=== PATIENT | female | born 1990 | race Caucasian/White ===

== ENCOUNTER 2019-07-13 10:46 | Emergency (ER) | payer MEDICAID ==
[2019-07-13] MEDS ORDERED: Phenazopyridine 95 MG Tab PO ONE (11:19)
[2019-07-13] MEDS ORDERED: Ondansetron 4 MG Tab.DIS PO ONE (11:20)
--- NOTE | 2019-07-13 11:25 | EDM.PDOC ---
ED HPI GENERAL MEDICAL PROBLEM - General Chief Complaint: Abdominal Pain Stated Complaint: ABDOMINAL PAIN/BURN WHILE URINATING Time Seen by Provider: 07/13/19 11:09 Source of Information: Reports: Patient, RN Notes Reviewed History Limitations: Reports: No Limitations - History of Present Illness INITIAL COMMENTS - FREE TEXT/NARRATIVE: Patient is a 29-year-old female who presents to the ED for the evaluation lower abdominal pain, dysuria. The patient notes that for the past 3 days, she developed symptoms. She states that she also got her period yesterday, and states that it has been exquisitely painful. She states that she is having lower abdomen pain, that also radiates into her low back. She notes dysuria, urinary frequency and urgency, chills, but not sure she has had any fever, she is afebrile at time of triage. Patient states she has not ever had a UTI. She tried to take 2 tablets of Pamprin, and 2 tablets of Tylenol for management. She states she has been increasing her fluid intake as well. Patient notes she has not had any sort of appendectomy, cholecystectomy, or hysterectomy. She states she has had a . She states that her periods are normally never this painful. She denies chance of , but she was a little bit late with her. She took 1 test at home and this was negative. She denies any vomiting or diarrhea, chest pain or shortness of breath. 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 Denies: Fever Respiratory: Denies: Shortness of Breath, Cough Cardiovascular: Denies: Chest Pain GI/Abdominal: Reports: Abdominal Pain (suprapubic/low mid abdominal), Nausea. Denies: Constipation, Diarrhea, Vomiting : Reports: Dysuria, Frequency, Pain (low mid abdomen/suprapubic), Urgency. Denies: Discharge, Hematuria Musculoskeletal: Reports: Back Pain (low bilateral back pain) ED EXAM, RENAL/ - Physical Exam Exam: See Below Exam Limited By: No Limitations General Appearance: Alert, WD/WN, No Apparent Distress Respiratory/Chest: No Respiratory Distress, Lungs Clear, Normal Breath Sounds, No Accessory Muscle Use, Chest Non-Tender Cardiovascular: Normal Peripheral Pulses, Regular Rate, Rhythm, No Murmur GI/Abdominal: Normal Bowel Sounds, Soft, No Distention, No Mass, Tender ( suprapubic tenderness) (Female) Exam: Deferred Back Exam: Normal Inspection, Full Range of Motion. No: CVA Tenderness (L), CVA Tenderness (R) Extremities: Normal Inspection, Normal Capillary Refill Neurological: Alert, Oriented, Normal Cognition, No Motor/Sensory Deficits Psychiatric: Normal Affect, Normal Mood Skin Exam: Warm, Dry, Intact, Normal Color, No Rash Course - Vital Signs Last Recorded V/S: Last Vital Signs Temp 97.6 F 07/13/19 11:08 Pulse 78 07/13/19 11:08 Resp 18 07/13/19 11:08 BP 129/71 07/13/19 11:08 Pulse Ox 100 07/13/19 11:08 - Orders/Labs/Meds Orders: Active Orders 24 hr Category Date Time Status CULTURE URINE [RM] Routine Lab 07/13/19 12:20 Ordered Labs: Laboratory Tests 07/13/19 07/13/19 Range/Units 11:12 11:24 Urine Color Yellow (Yellow) Urine Appearance Clear (Clear) Urine pH 7.0 (5.0-8.0) Ur Specific [place] 1.025 (1.005-1.030) Urine Protein Negative (Negative) Urine Glucose (UA) Negative (Negative) Urine Ketones Negative (Negative) Urine Occult Blood Negative (Negative) Urine Nitrite Negative (Negative) Urine Bilirubin Negative (Negative) Urine Urobilinogen 0.2 (0.2-1.0) Ur Leukocyte Esterase Trace H (Negative) Urine RBC Not seen (0-5) /hpf Urine WBC 5-10 H (0-5) /hpf Ur Epithelial Cells 0-5 (0-5) /hpf Urine Bacteria Rare (FEW) /hpf Urine Mucus Not seen (FEW) /hpf Urine HCG, Qual Negative (NEGATIVE) Meds: Medications Discontinued Medications Generic Name Dose Route Start Last Admin Trade Name Donna PRN Reason Stop Dose Admin Ibuprofen 600 mg 07/13/19 11:27 07/13/19 11:32 Motrin PO 07/13/19 11:28 600 mg ONETIME ONE Administration Ondansetron HCl 4 mg 07/13/19 11:20 07/13/19 11:24 Zofran Odt PO 07/13/19 11:21 4 mg ONETIME ONE Administration Phenazopyridine HCl 95 mg 07/13/19 11:19 07/13/19 11:24 Urinary Pain Relief PO 07/13/19 11:20 95 mg ONETIME ONE Administration - Re-Assessments/Exams Free Text/Narrative Re-Assessment/Exam: 07/13/19 11:25 Patient presents to the ED for evaluation of burning with urination and mid to lower abdominal pain. By physical exam and history, she clinically has a UTI. A UA will be obtained, with a hCG, and she will be given a tablet of Azo to start symptomatic relief here. 07/13/19 12:20 Patient's laboratory evaluations done, they demonstrates no nitrites, trace leukocyte esterase with 5-10 white blood cells present. Due to the patient's clinical presentation and symptoms, I do believe she has a UTI she will be treated as such, she will be given 500 mg cephalexin twice daily for the next 7 days. With other general recommendations. She will be educated on return precautions. Departure - Departure Time of Disposition: 12:21 Disposition: Home, Self-Care 01 Condition: Fair Clinical Impression: UTI (urinary tract infection) Qualifiers: Urinary tract infection type: acute cystitis Hematuria presence: without hematuria Qualified Code(s): N30.00 - Acute cystitis without hematuria - Discharge Information *PRESCRIPTION DRUG MONITORING PROGRAM REVIEWED*: No *COPY OF PRESCRIPTION DRUG MONITORING REPORT IN PATIENT EUGENIO: No Prescriptions: cephALEXin [Cephalexin] 500 mg PO BID #14 capsule Instructions: Urinary Tract Infection, Adult, [id number] Referrals: PCP,None [Primary Care Provider] - Forms: ED Department Discharge Additional Instructions: You have been evaluated in the ED for your urinary symptoms. Your urinalysis was consistent with an acute urinary tract infection. Your urine was sent for culture, and you will be notified if you should need a change in your antibiotic. You may take AZO for urinary pain relief. This is available over the counter, and can be attained at any retail store like [employer] or any pharmacy. Please be aware that this medication will make your urine turn orange. You may also try to use a heating pad to your lower abdomen to help provide pain relief. You have been given a prescription for Cephalexin, 500 mg 1 tablet 2 times a day for 7 days. This has been electronically sent to the [facility] pharmacy located on [address]. Please increase your oral fluid intake and try to stay adequately hydrated. Please return to the ED if your symptoms change or worsen. Sepsis Event Note - Evaluation Sepsis Screening Result: No Definite Risk - Focused Exam Vital Signs: Vital Signs Temp Pulse Resp BP Pulse Ox 07/13/19 11:08 97.6 F 78 18 129/71 100 Date Exam was Performed: 07/13/19 Time Exam was Performed: 12:20 - My Orders Last 24 Hours: My Active Orders 07/13/19 12:20 CULTURE URINE [RM] Routine - Assessment/Plan Last 24 Hours: My Active Orders 07/13/19 12:20 CULTURE URINE [RM] Routine
[2019-07-13] MEDS ORDERED: Ibuprofen 600 MG Tab PO ONE (11:27)
== END 2019-07-13 12:30 | disposition home or self-care (01) ==
LOC: JD.ED 10:46
DX: N30.00 Acute cystitis without hematuria (principal); Z88.1 Allergy status to other antibiotic agents
CPT/HCPCS: 81001; 81025; 87086; 99284; A9270; 99283

== ENCOUNTER 2019-07-23 21:22 | Emergency (ER) | payer MEDICAID ==
--- NOTE | 2019-07-23 23:32 | EDM.PDOC ---
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 She states she had what she thought was a normal menstrual period about 2-1/2 weeks ago. She started with some very mild bleeding this past morning and then it did become much heavier 3-4 hours ago. He states she's been soaking several pads or tampons per hour for the last several hours. There have been some clots. Not feel like she should be . No major abdominal, pelvic pain or cramping. Upper Abdomen Pain Score (Numeric/FACES): 6 - Related Data Allergies Allergy/AdvReac Type Severity Reaction Status Date / Time sulfamethoxazole AdvReac Nausea Verified 07/23/19 21:35 [From Bactrim] trimethoprim [From Bactrim] AdvReac Nausea Verified 07/23/19 21:35 Home Meds: Home Meds . 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: Musculoskeletal History: Reports: None Neurological History: Reports: None Psychiatric History: Reports: None Endocrine/Metabolic History: Reports: None Hematologic History: Reports: None Immunologic History: Reports: None Oncologic (Cancer) History: Reports: None Dermatologic History: Reports: None - Infectious Disease History Infectious Disease History: Reports: None - Past Surgical History HEENT Surgical History: Reports: Other (See Below) Other HEENT Surgeries/Procedures: Dental Extraction Female Surgical History: Reports: Section Social & Family History - Tobacco Use Smoking Status *Q: Current Every Day Smoker Years of Tobacco use: 13 Packs/Tins Daily: 0.4 - Caffeine Use Caffeine Use: Reports: None - Recreational Drug Use Recreational Drug Use: No ED ROS GENERAL - Review of Systems Review Of Systems: See Below Constitutional: Denies: Fever, Chills, Diaphoresis HEENT: Reports: No Symptoms Respiratory: Denies: Shortness of Breath Cardiovascular: Denies: Chest Pain GI/Abdominal: Denies: Abdominal Pain : Reports: Other (Vaginal bleeding) Musculoskeletal: Denies: Back Pain Skin: Reports: No Symptoms Neurological: Reports: No Symptoms ED EXAM, RENAL/ - Physical Exam Exam: See Below General Appearance: Alert, No Apparent Distress Throat/Mouth: Normal Inspection Head: Atraumatic Neck: Supple Respiratory/Chest: No Respiratory Distress, Lungs Clear, Normal Breath Sounds Cardiovascular: Regular Rate, Rhythm GI/Abdominal: Soft, Non-Tender (Female) Exam: Vaginal Bleeding (Very small amount of blood in the posterior vaginal vault at time of exam. It should be noted exam was done about 2 hours after patient arrival to ED and patient states she could tell the bleeding had slowed significantly from time of arrival). No: Adnexal Mass, Adnexal Tenderness Back Exam: No: CVA Tenderness (L), CVA Tenderness (R) Extremities: Normal Inspection, Normal Range of Motion Neurological: Alert, Oriented, No Motor/Sensory Deficits Skin Exam: Warm, Dry, Normal Color Course - Vital Signs Last Recorded V/S: Last Vital Signs Temp 97.9 F 07/23/19 21:31 Pulse 86 07/23/19 21:31 Resp 16 07/23/19 21:31 BP 124/83 07/23/19 21:31 Pulse Ox 100 07/23/19 21:31 - Orders/Labs/Meds Labs: Laboratory Tests 07/23/19 07/23/19 Range/Units 22:10 22:10 WBC 3.77 L (3.98-10.04) K/mm3 RBC 3.92 L (3.98-5.22) M/mm3 Hgb 10.5 L (11.2-15.7) gm/dl Hct 33.6 L (34.1-44.9) % MCV 85.7 (79.4-94.8) fl MCH 26.8 (25.6-32.2) pg MCHC 31.3 L (32.2-35.5) g/dl RDW Std Deviation 40.9 (36.4-46.3) fL Plt Count 196 (182-369) K/mm3 MPV 10.4 (9.4-12.3) fl Neut % (Auto) 49.3 (34.0-71.1) % Lymph % (Auto) 35.8 (19.3-51.7) % [place] % (Auto) 6.9 (4.7-12.5) % Eos % (Auto) 7.7 H (0.7-5.8) Baso % (Auto) 0.3 (0.1-1.2) % Neut # (Auto) 1.86 (1.56-6.13) K/mm3 Lymph # (Auto) 1.35 (1.18-3.74) K/mm3 [place] # (Auto) 0.26 (0.24-0.36) K/mm3 Eos # (Auto) 0.29 (0.04-0.36) K/mm3 Baso # (Auto) 0.01 (0.01-0.08) K/mm3 HCG, Qual Negative (NEGATIVE) - Re-Assessments/Exams Free Text/Narrative Re-Assessment/Exam: 07/24/19 01:08 Hemoglobin noted to be 10.5 today, was 11.6 just a couple of days ago at the clinic. Patient has been ambulatory here in the ED without difficulty. Her that time of exam the bleeding had slowed significantly, almost stopped. HCG negative. Discharge instructions as documented. Departure - Departure Time of Disposition: 23:42 Disposition: Home, Self-Care 01 Clinical Impression: Vaginal bleeding between periods - Discharge Information Instructions: Abnormal Uterine Bleeding, [id number] Referrals: Lashanda Ramírez MD [Primary Care Provider] - Forms: ED Department Discharge Additional Instructions: rest, drink plenty of water to maintain hydration. If bleeding gets real heavy again soaking a pad or more per hour for more than 2 hours return to ED. See Dr Ramírez as needed. If unable to get into see Dr Ramírez you also can try follow up with Eveline Barrera or one of our providers at the [facility]. Call [phone] as needed for appointment. Sepsis Event Note - Evaluation Sepsis Screening Result: No Definite Risk - Focused Exam Vital Signs: Vital Signs Temp Pulse Resp BP Pulse Ox 07/23/19 21:31 97.9 F 86 16 124/83 100 Date Exam was Performed: 07/24/19 Time Exam was Performed: 01:04
== END 2019-07-23 23:56 | disposition home or self-care (01) ==
LOC: JD.ED 21:22
DX: N93.9 Abnormal uterine and vaginal bleeding, unspecified (principal); F17.210 Nicotine dependence, cigarettes, uncomplicated; Z88.2 Allergy status to sulfonamides; Z88.1 Allergy status to other antibiotic agents
CPT/HCPCS: 36415; 84703; 85025; 99282; 99284

== ENCOUNTER 2019-07-24 12:35 | Emergency (ER) | payer MEDICAID | END 2019-07-24 14:07 | disposition left against medical advice (07) | LOC: JD.ED 12:35 | DX: Z53.21 Procedure and treatment not carried out due to patient leaving prior to being seen by health care provider (principal) | CPT/HCPCS: 36415; 80053; 85025 ==

== ENCOUNTER 2021-01-12 05:25 | Emergency (ER) | payer MEDICAID ==
--- NOTE | 2021-01-12 06:13 | EDM.PDOC ---
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 Patient was recently started on the new control pill to help regulate her cycles she was started on Lotrel 7 or 8 days ago she took it for 6 or 7 days and then she noticed she was having some heavy so she stopped it 2 to 3 days ago. Now she is developed pretty significant cramping and discomfort. She does not believe she is . She has not had any fevers or chills. Lower Abdomen Pain Score (Numeric/FACES): 8 - Related Data Allergies Allergy/AdvReac Type Severity Reaction Status Date / Time sulfamethoxazole AdvReac Nausea Verified 07/24/19 12:57 [From Bactrim] trimethoprim [From Bactrim] AdvReac Nausea Verified 07/24/19 12:57 Home Meds: Home Meds . 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: Musculoskeletal History: Reports: None Neurological History: Reports: None Psychiatric History: Reports: None Endocrine/Metabolic History: Reports: None Hematologic History: Reports: None Immunologic History: Reports: None Oncologic (Cancer) History: Reports: None Dermatologic History: Reports: None - Infectious Disease History Infectious Disease History: Reports: None - Past Surgical History HEENT Surgical History: Reports: Other (See Below) Other HEENT Surgeries/Procedures: Dental Extraction Female Surgical History: Reports: Section Social & Family History - Family History Family Medical History: No Pertinent Family History - Tobacco Use Tobacco Use Status *Q: Current Every Day Tobacco User Years of Tobacco use: 10 Packs/Tins Daily: 1 - Caffeine Use Caffeine Use: Reports: None - Recreational Drug Use Recreational Drug Use: No ED ROS GENERAL - Review of Systems Review Of Systems: See Below Constitutional: Reports: No Symptoms Respiratory: Reports: No Symptoms Cardiovascular: Reports: No Symptoms GI/Abdominal: Reports: No Symptoms : Reports: Irregular Menses Musculoskeletal: Reports: No Symptoms Skin: Reports: No Symptoms Neurological: Reports: No Symptoms ED EXAM, GENERAL - Physical Exam Exam: See Below Exam Limited By: No Limitations General Appearance: Alert, No Apparent Distress Head: Atraumatic, Normocephalic Neck: Normal Inspection, Supple, Non-Tender, Full Range of Motion Respiratory/Chest: No Respiratory Distress, Lungs Clear, Normal Breath Sounds Cardiovascular: Regular Rate, Rhythm, No Edema, No Murmur GI/Abdominal: Normal Bowel Sounds, Soft, Tender (She has tenderness in the suprapubic area and to a much lesser degree right lower quadrant no other significant tenderness noted). No: Guarding, Rigid, Rebound Back Exam: Normal Inspection, CVA Tenderness (R). No: CVA Tenderness (L) Neurological: Alert, Oriented, Normal Cognition Course - Vital Signs Last Recorded V/S: Last Vital Signs Temp 36.1 C 01/12/21 05:41 Pulse 73 01/12/21 05:41 Resp 18 01/12/21 05:41 BP 111/82 01/12/21 05:41 Pulse Ox 100 01/12/21 05:41 - Orders/Labs/Meds Labs: Laboratory Tests 01/12/21 01/12/21 01/12/21 Range/Units 06:15 06:15 06:35 WBC 6.83 (3.98-10.04) K/mm3 RBC 4.67 (3.98-5.22) M/mm3 Hgb 14.3 D (11.2-15.7) gm/dl Hct 42.1 (34.1-44.9) % MCV 90.1 D (79.4-94.8) fl MCH 30.6 (25.6-32.2) pg MCHC 34.0 (32.2-35.5) g/dl RDW Std Deviation 41.0 (36.4-46.3) fL Plt Count 215 (182-369) K/mm3 MPV 10.4 (9.4-12.3) fl Neut % (Auto) 73.8 H (34.0-71.1) % Lymph % (Auto) 15.8 L (19.3-51.7) % [place] % (Auto) 6.0 (4.7-12.5) % Eos % (Auto) 4.2 (0.7-5.8) Baso % (Auto) 0.1 (0.1-1.2) % Neut # (Auto) 5.03 (1.56-6.13) K/mm3 Lymph # (Auto) 1.08 L (1.18-3.74) K/mm3 [place] # (Auto) 0.41 H (0.24-0.36) K/mm3 Eos # (Auto) 0.29 (0.04-0.36) K/mm3 Baso # (Auto) 0.01 (0.01-0.08) K/mm3 Sodium (136-145) mEq/L Potassium (3.5-5.1) mEq/L Chloride (98-107) mEq/L Carbon Dioxide (21-32) mEq/L Anion Gap (5-15) BUN (7-18) mg/dL Creatinine (0.55-1.02) mg/dL Est Cr Clr Drug Dosing mL/min Estimated GFR (MDRD) (>60) mL/min BUN/Creatinine Ratio (14-18) Glucose (70-99) mg/dL Calcium (8.5-10.1) mg/dL Total Bilirubin (0.2-1.0) mg/dL AST (15-37) U/L ALT (14-59) U/L Alkaline Phosphatase (46-116) U/L Total Protein (6.4-8.2) g/dl Albumin (3.4-5.0) g/dl Globulin gm/dL Albumin/Globulin Ratio (1-2) Urine Color Yellow (Yellow) Urine Appearance Clear (Clear) Urine pH 6.5 (5.0-8.0) Ur Specific [place] 1.015 (1.005-1.030) Urine Protein Negative (Negative) Urine Glucose (UA) Negative (Negative) Urine Ketones Negative (Negative) Urine Occult Blood Negative (Negative) Urine Nitrite Negative (Negative) Urine Bilirubin Negative (Negative) Urine Urobilinogen 0.2 (0.2-1.0) Ur Leukocyte Esterase Negative (Negative) Urine HCG, Qual Negative (NEGATIVE) 01/12/21 Range/Units 06:35 WBC (3.98-10.04) K/mm3 RBC (3.98-5.22) M/mm3 Hgb (11.2-15.7) gm/dl Hct (34.1-44.9) % MCV (79.4-94.8) fl MCH (25.6-32.2) pg MCHC (32.2-35.5) g/dl RDW Std Deviation (36.4-46.3) fL Plt Count (182-369) K/mm3 MPV (9.4-12.3) fl Neut % (Auto) (34.0-71.1) % Lymph % (Auto) (19.3-51.7) % [place] % (Auto) (4.7-12.5) % Eos % (Auto) (0.7-5.8) Baso % (Auto) (0.1-1.2) % Neut # (Auto) (1.56-6.13) K/mm3 Lymph # (Auto) (1.18-3.74) K/mm3 [place] # (Auto) (0.24-0.36) K/mm3 Eos # (Auto) (0.04-0.36) K/mm3 Baso # (Auto) (0.01-0.08) K/mm3 Sodium 143 (136-145) mEq/L Potassium 3.7 (3.5-5.1) mEq/L Chloride 109 H (98-107) mEq/L Carbon Dioxide 21 (21-32) mEq/L Anion Gap 16.7 H (5-15) BUN 15 (7-18) mg/dL Creatinine 0.8 (0.55-1.02) mg/dL Est Cr Clr Drug Dosing 96.26 mL/min Estimated GFR (MDRD) > 60 (>60) mL/min BUN/Creatinine Ratio 18.8 H (14-18) Glucose 90 (70-99) mg/dL Calcium 8.8 (8.5-10.1) mg/dL Total Bilirubin 0.3 (0.2-1.0) mg/dL AST 13 L (15-37) U/L ALT 19 (14-59) U/L Alkaline Phosphatase 63 (46-116) U/L Total Protein 7.6 (6.4-8.2) g/dl Albumin 4.3 (3.4-5.0) g/dl Globulin 3.3 gm/dL Albumin/Globulin Ratio 1.3 (1-2) Urine Color (Yellow) Urine Appearance (Clear) Urine pH (5.0-8.0) Ur Specific [place] (1.005-1.030) Urine Protein (Negative) Urine Glucose (UA) (Negative) Urine Ketones (Negative) Urine Occult Blood (Negative) Urine Nitrite (Negative) Urine Bilirubin (Negative) Urine Urobilinogen (0.2-1.0) Ur Leukocyte Esterase (Negative) Urine HCG, Qual (NEGATIVE) Meds: Medications Discontinued Medications Generic Name Dose Route Start Last Admin Trade Name Donna PRN Reason Stop Dose Admin Ketorolac Tromethamine 30 mg 01/12/21 06:21 01/12/21 06:44 Ketorolac 30 Mg/Ml Sdv IM 01/12/21 06:22 Not Given ONETIME ONE Ketorolac Tromethamine 15 mg 01/12/21 06:31 01/12/21 06:34 Ketorolac 15 Mg/Ml Sdv IVPUSH 01/12/21 06:32 15 mg ONETIME ONE Administration - Re-Assessments/Exams Free Text/Narrative Re-Assessment/Exam: 01/12/21 07:32 Is reviewed Case reviewed with Dr. Wilson. She would like for the patient to restart the control pills but the patient does not want to because of the nausea. Dr. Wilson recommended ibuprofen to help with the cramping. I did discuss this with the patient she has 800 mg tablets that she will use at home. Departure - Departure Time of Disposition: 07:33 Disposition: Home, Self-Care 01 Clinical Impression: Uterine cramping, DUB (dysfunctional uterine bleeding) - Discharge Information Referrals: Cristal Ludwig, [employer] CONTROLLER [Primary Care Provider] - Forms: ED Department Discharge Additional Instructions: Return to the emergency room with any questions problems or worsening symptoms. Follow-up with Dr. Wilson. She does recommend that you restart the control pills, but you stop these because of the nausea. Use your ibuprofen 800 mg 1 3 times a day with meals to help with the cramping. Sepsis Event Note (ED) - Evaluation Sepsis Screening Result: No Definite Risk - Focused Exam Vital Signs: Vital Signs Temp Pulse Resp BP Pulse Ox 01/12/21 05:41 36.1 C 73 18 111/82 100
[2021-01-12] MEDS ORDERED: Ketorolac 30 MG/ML SDV IM ONE (06:21)
[2021-01-12] MEDS ORDERED: Ketorolac 15 MG/ML SDV IVPUSH ONE (06:31)
== END 2021-01-12 07:45 | disposition home or self-care (01) ==
LOC: JD.ED 05:25
DX: N93.8 Other specified abnormal uterine and vaginal bleeding (principal); Z72.0 Tobacco use; Z88.1 Allergy status to other antibiotic agents
CPT/HCPCS: 36415; 80053; 81003; 81025; 85025; 96374; 99284; J1885; 99283